=== PATIENT | male | born 1955 | race Caucasian/White ===

== ENCOUNTER → 2019-12-02 | Outpatient (CLI) | payer BC, OTHER | LOC: LAB SHORT 15:11 → PLD 15:11 | DX: D11.0 Benign neoplasm of parotid gland (principal) | CPT/HCPCS: 88173 ==

== ENCOUNTER 2020-08-09 06:11 | Day surgery (SDC) | payer BC, OTHER ==
[~2020-08-09] VITALS: Ht 172.7 cm; Wt 91.5 kg
[~2020-08-09 06:11] MED LIST: ALLO300 PO; FEBU40TA PO; FLOMAX0.4 MG PO; FLUT.05NI; Indocin50 MG PO
== END 2020-08-09 12:00 | disposition home or self-care (01) ==
LOC: ORSCSDS 06:11
PROVIDERS: Otolaryngology
PROC: 00BM0ZZ Excision of Facial Nerve, Open Approach (ICD-10-PCS; principal; 2020-08-09 07:30)
PROC: 0CB90ZZ Excision of Left Parotid Gland, Open Approach (ICD-10-PCS; principal; 2020-08-09 07:30)
DX: R22.1 Localized swelling, mass and lump, neck (principal); I25.10 Atherosclerotic heart disease of native coronary artery without angina pectoris; N18.30 Chronic kidney disease, stage 3 unspecified; E66.9 Obesity, unspecified; Z68.30 Body mass index [BMI] 30.0-30.9, adult; Z87.891 Personal history of nicotine dependence; Z79.899 Other long term (current) drug therapy
CPT/HCPCS: 88307; J0171; J1100; J1885; J2250; J2405; J2704; J3010; J7120

== ENCOUNTER → 2023-04-22 | Outpatient (CLI) | payer MEDICARE | LOC: LAB SHORT 12:13 → LAB 12:13 | DX: L72.3 Sebaceous cyst (principal) | CPT/HCPCS: 87070; 87075; 87205 ==

== ENCOUNTER 2023-07-02 09:51 | Day surgery (SDC) | payer MEDICARE ==
[~2023-07-02] VITALS: Ht 172.7 cm; Wt 74.9 kg
[2023-07-02] MEDS ORDERED: ROSUVASTATIN CAL5 MG PO (10:31)
[2023-07-02] MEDS ORDERED: TAMSULOSIN HCL0.4 M1 PO (10:31)
[2023-07-02] MEDS ORDERED: Aspir 8181 MG PO (10:32)
[2023-07-02 11:56] VITALS: BP 146/73
== END 2023-07-02 12:15 | disposition home or self-care (01) ==
LOC: ORSCSDS 09:51
PROVIDERS: Surgery
PROC: 0JB40ZX Excision of Right Neck Subcutaneous Tissue and Fascia, Open Approach, Diagnostic (ICD-10-PCS; principal; 2023-07-02 11:15)
PROC: 0JB50ZX Excision of Left Neck Subcutaneous Tissue and Fascia, Open Approach, Diagnostic (ICD-10-PCS; principal; 2023-07-02 11:15)
DX: L72.9 Follicular cyst of the skin and subcutaneous tissue, unspecified (principal); I12.9 Hypertensive chronic kidney disease with stage 1 through stage 4 chronic kidney disease, or unspecified chronic kidney disease; N18.30 Chronic kidney disease, stage 3 unspecified; E78.5 Hyperlipidemia, unspecified; Z87.891 Personal history of nicotine dependence; Z85.46 Personal history of malignant neoplasm of prostate; Z79.82 Long term (current) use of aspirin; Z79.899 Other long term (current) drug therapy
CPT/HCPCS: 88304; J2001; J2795; J7120